=== PATIENT | female | born 1960 | race American Indian/Alaskan Native ===

== ENCOUNTER 2018-07-26 09:08 | Emergency (ER) | payer MEDICAID, MEDICARE ==
[2018-07-26] MEDS ORDERED: ASPIRIN PO ONE (09:18)
[2018-07-26 09:52] LABS: Basophils % (Auto) 0.9 % (0.0-1.8); Eosinophils # (Auto) 0.2 K/mm3 (0.0-0.4); Eosinophils % (Auto) 6.1 % (0.0-4.3); Hematocrit 38.5 % (30.3-42.9); Lymphocytes # (Auto) 1.3 K/mm3 (1.2-5.4); Mean Corpuscular HGB Conc 34 % (30-34); Mean Corpuscular Hemoglobin 30 pg (28-32); Mean Corpuscular Volume 88 fl (79-97); Monocytes # (Auto) 0.5 K/mm3 (0.0-0.8); Monocytes % (Auto) 12.9 % (0.0-7.3); Platelet Count 188 K/mm3 (140-440); Red Blood Count 4.37 M/mm3 (3.65-5.03); Red Cell Distribution Width 14.4 % (13.2-15.2)
[2018-07-26] MEDS ORDERED: CATAPRES PO ONE (10:13)
--- NOTE | 2018-07-26 10:17 | Emergency Department Report ---
- General Chief Complaint: Upper Respiratory Infection Stated Complaint: DRY COUGH Source: patient Mode of arrival: Ambulatory Limitations: No Limitations - History of Present Illness Initial Comments: Patient is a 57-year-old black female past medical history hypertension who is complaining of a dry cough for last 4-5 days. Patient states that her granddaughter was sick with the same condition. Patient states that she has difficulty sleeping secondary to continuous coughing. Patient states this just mild chest discomfort with cough. Patient is also complaining of associated scratchy sore throat as well as sinus congestion and tenderness. Patient denies any fever or neck stiffness at this time. Patient also denies any nausea vomiting and diarrhea. Patient lastly ran out of her blood pressure medicines approximately week ago and does not have any refills. Patient denies any exertional chest pain decreased urination or neurological deficits. - Related Data Previous Rx's Medication Instructions Recorded Last Taken Type Acyclovir [Zovirax Tab] 800 mg PO 5XD #50 tab 01/11/15 Unknown Rx Loratadine [Claritin] 10 mg PO DAILY #30 tablet 01/11/15 Unknown Rx predniSONE [Deltasone] 50 mg PO QDAY #5 tab 01/11/15 Unknown Rx traMADol [Ultram] 50 mg PO Q6HR PRN #30 tablet 01/11/15 Unknown Rx ALBUTEROL Inhaler (OR & NICU) 2 puff IH QID PRN #1 inhalation 07/26/18 Unknown Rx [ProAir HFA Inhaler] Amoxicillin/Potassium Clav 1 each PO BID #14 tablet 07/26/18 Unknown Rx [Augmentin 875-125 Tablet] Benzonatate [Tessalon Perles] 100 mg PO Q8HR #10 capsule 07/26/18 Unknown Rx Losartan/Hydrochlorothiazide 1 each PO DAILY #30 tablet 07/26/18 Unknown Rx [Losartan-Hctz 100-25 mg Tab] predniSONE [Deltasone] 20 mg PO QDAY #5 tab 07/26/18 Unknown Rx Allergies Allergy/AdvReac Type Severity Reaction Status Date / Time No Known Allergies Allergy Verified 07/26/18 09:15 ED Review of Systems ROS: Stated complaint: DRY COUGH Other details as noted in HPI Comment: All other systems reviewed and negative ED Past Medical Hx - Past Medical History Hx Hypertension: Yes - Social History Smoking Status: Never Smoker Substance Use Type: None - Medications Home Medications: Home Medications Medication Instructions Recorded Confirmed Last Taken Type Acyclovir [Zovirax Tab] 800 mg PO 5XD #50 tab 01/11/15 Unknown Rx Loratadine [Claritin] 10 mg PO DAILY #30 tablet 01/11/15 Unknown Rx predniSONE [Deltasone] 50 mg PO QDAY #5 tab 01/11/15 Unknown Rx traMADol [Ultram] 50 mg PO Q6HR PRN #30 tablet 01/11/15 Unknown Rx ALBUTEROL Inhaler (OR & NICU) 2 puff IH QID PRN #1 inhalation 07/26/18 Unknown Rx [ProAir HFA Inhaler] Amoxicillin/Potassium Clav 1 each PO BID #14 tablet 07/26/18 Unknown Rx [Augmentin 875-125 Tablet] Benzonatate [Tessalon Perles] 100 mg PO Q8HR #10 capsule 07/26/18 Unknown Rx Losartan/Hydrochlorothiazide 1 each PO DAILY #30 tablet 07/26/18 Unknown Rx [Losartan-Hctz 100-25 mg Tab] predniSONE [Deltasone] 20 mg PO QDAY #5 tab 07/26/18 Unknown Rx ED Physical Exam - General Limitations: No Limitations General appearance: alert, in no apparent distress - Head Head exam: Present: atraumatic, normocephalic - Eye Eye exam: Present: normal appearance - ENT ENT exam: Present: mucous membranes moist - Neck Neck exam: Present: normal inspection - Respiratory Respiratory exam: Present: normal lung sounds bilaterally. Absent: respiratory distress, wheezes, rales, rhonchi, stridor, chest wall tenderness, accessory muscle use, decreased breath sounds - Cardiovascular Cardiovascular Exam: Present: regular rate, normal rhythm. Absent: systolic murmur, diastolic murmur, rubs, gallop - GI/Abdominal GI/Abdominal exam: Present: soft, normal bowel sounds. Absent: distended, tenderness, guarding, rebound - Extremities Exam Extremities exam: Present: normal inspection - Back Exam Back exam: Present: normal inspection - Neurological Exam Neurological exam: Present: alert, oriented X3 - Psychiatric Psychiatric exam: Present: normal affect, normal mood - Skin Skin exam: Present: warm, dry, intact, normal color. Absent: rash ED Course Vital Signs 07/26/18 09:15 Temperature 98.2 F Pulse Rate 63 Respiratory 18 Rate Blood Pressure 203/115 O2 Sat by Pulse 97 Oximetry ED Medical Decision Making - Lab Data Result diagrams: 07/26/18 09:29 - EKG Data -: EKG Interpreted by Me EKG shows normal: sinus rhythm, axis, intervals, QRS complexes, ST-T waves Rate: normal - EKG Data Interpretation: LV[facility] - Medical Decision Making The patient's lungs are clear to auscultation and the patient is in no acute distress and is not ill-appearing. Patient because of the sinus discomfort and cough will be started on Augmentin. Patient will also be given of a course of steroids. Patient will have her losartan refilled as well.` Critical care attestation.: If time is entered above; I have spent that time in minutes in the direct care of this critically ill patient, excluding procedure time. ED Disposition Clinical Impression: Hypertensive urgency Upper respiratory infection Qualifiers: URI type: unspecified URI Qualified Code(s): J06.9 - Acute upper respiratory infection, unspecified Disposition: DC- TO HOME OR SELFCARE Is pt being admited?: No Does the pt Need Aspirin: No Condition: Stable Instructions: Hypertension (ED), Upper Respiratory Infection (ED) Prescriptions: ALBUTEROL Inhaler (OR & NICU) [ProAir HFA Inhaler] 2 puff IH QID PRN #1 inhalation PRN Reason: Shortness Of Breath Amoxicillin/Potassium Clav [Augmentin 875-125 Tablet] 1 each PO BID #14 tablet Benzonatate [Tessalon Perles] 100 mg PO Q8HR #10 capsule Losartan/Hydrochlorothiazide [Losartan-Hctz 100-25 mg Tab] 1 each PO DAILY #30 tablet predniSONE [Deltasone] 20 mg PO QDAY #5 tab Referrals: PRIMARY CARE, [Primary Care Provider] - 3-5 Days Time of Disposition: 10:17
[2018-07-26 10:27] LABS: BUN/Creatinine Ratio 21; Blood Urea Nitrogen 15 mg/dL (7-17); Calcium 9.4 mg/dL (8.4-10.2); Hemolysis Index 7
[2018-07-26 11:21] VITALS: BP 210/119
[2018-07-26] MEDS ORDERED: CATAPRES ONE (11:28)
== END 2018-07-26 11:29 | disposition home or self-care (01) ==
LOC: ED 09:08
DX: I16.0 Hypertensive urgency (principal); J06.9 Acute upper respiratory infection, unspecified; I10 Essential (primary) hypertension
CPT/HCPCS: 36415; 80048; 84484; 85025; 93005; 93010; 99283

== ENCOUNTER 2018-11-15 15:32 | Emergency (ER) | payer MEDICARE ==
[2018-11-15] MEDS ORDERED: IBUPROFEN PO ONE (19:40)
[2018-11-15] MEDS ORDERED: IBUPROFEN ONE (19:41)
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
[2018-11-15 20:31] VITALS: BP 170/100
== END 2018-11-15 20:30 | disposition home or self-care (01) ==
LOC: ED 15:32
DX: S50.01XA Contusion of right elbow, initial encounter (principal); M62.830 Muscle spasm of back; I10 Essential (primary) hypertension; M54.2 Cervicalgia; M25.561 Pain in right knee; M25.562 Pain in left knee; X58.XXXA Exposure to other specified factors, initial encounter; Y93.89 Activity, other specified; Y92.89 Other specified places as the place of occurrence of the external cause; Y99.8 Other external cause status
CPT/HCPCS: 99282

== ENCOUNTER 2019-04-01 12:44 | Emergency (ER) | payer MEDICARE ==
[2019-04-01 13:37] VITALS: BP 159/90
--- NOTE | 2019-04-01 13:37 | Emergency Department Report ---
Blank Doc - Documentation Documentation: pt presents with a cough that began a week ago +sputum production wheezing +sob +congestion no fever PMHx HTN non smoker occ drinker no drug use
--- NOTE | 2019-04-01 14:46 | XRay Report ---
PROCEDURE: XR CHEST ROUTINE 2V TECHNIQUE: Chest, 2 views HISTORY: cough COMPARISON: None FINDINGS: The heart size is normal. There is no pulmonary vascular congestion seen. Mediastinal contours are normal. Lungs are clear. There is no pleural effusion seen. There is no pneumothorax seen. IMPRESSION: No acute abnormality identified. This document is electronically signed by Luz Marina Javier MD., Apr 01 2019 02:44:33 PM ET
[2019-04-01] MEDS ORDERED: DECADRON IM ONE (15:06)
[2019-04-01] MEDS ORDERED: DUONEB *Not for PRN Use IH ONE (15:06)
--- NOTE | 2019-04-01 15:12 | Emergency Department Report ---
Upper Respiratory HPI - HPI Chief Complaint: Upper Respiratory Infection Stated Complaint: CHEST/COUGH/SORE THROAT Time Seen by Provider: 04/01/19 13:35 Duration: 1 week URI Symptoms: Rhinorrhea: Yes, Sore Throat: Yes, Ear Pain: No, Cough: Yes, Shortness of Breath: Yes, Sick Contacts: No, Unable to Take Fluids: No, Urine Output Abnormal: No, Listless Behavior: No Other History: This is a 58-year-old female nontoxic, well nourished in appearance, no acute signs of distress presents to the ED with c/o of productive cough, wheezing, SOB, rhinorrhea, nasal congestion x1 week. Patient describes productive cough as yellow mucus production. Patient denies any sick contact. Patient denies any recent travels, long car, recent hospital stays. Patient denies any calf pain or calf tenderness. Patient denies any chest pain, fever, chills, nausea, vomiting, hemoptysis, numbness, tingling, headache or stiff neck. Patient denies any allergies or significant past medical history. - Home Meds and Allergies Home Medications: Previous Rx's Medication Instructions Recorded Last Taken Type Acyclovir [Zovirax Tab] 800 mg PO 5XD #50 tab 01/11/15 Unknown Rx Loratadine [Claritin] 10 mg PO DAILY #30 tablet 01/11/15 Unknown Rx predniSONE [Deltasone] 50 mg PO QDAY #5 tab 01/11/15 Unknown Rx traMADol [Ultram] 50 mg PO Q6HR PRN #30 tablet 01/11/15 Unknown Rx ALBUTEROL Inhaler (OR & NICU) 2 puff IH QID PRN #1 inhalation 07/26/18 Unknown Rx [ProAir HFA Inhaler] Amoxicillin/Potassium Clav 1 each PO BID #14 tablet 07/26/18 Unknown Rx [Augmentin 875-125 Tablet] Benzonatate [Tessalon Perles] 100 mg PO Q8HR #10 capsule 07/26/18 Unknown Rx Losartan/Hydrochlorothiazide 1 each PO DAILY #30 tablet 07/26/18 Unknown Rx [Losartan-Hctz 100-25 mg Tab] predniSONE [Deltasone] 20 mg PO QDAY #5 tab 07/26/18 Unknown Rx Ketorolac [Toradol] 10 mg PO Q6H PRN #15 tablet 11/15/18 Unknown Rx Methocarbamol [Robaxin-750] 750 mg PO Q8H PRN #20 tablet 11/15/18 Unknown Rx traMADol [Ultram] 50 mg PO Q6HR PRN #20 tablet 11/15/18 Unknown Rx Azithromycin [Zithromax Z-RADHA] 250 mg PO DAILY #6 tablet 04/01/19 Unknown Rx Benzonatate [Tessalon Perles] 100 mg PO Q8HR PRN #20 capsule 04/01/19 Unknown Rx Ibuprofen [Motrin] 600 mg PO Q8H PRN #20 tablet 04/01/19 Unknown Rx Prednisone [predniSONE 10 mg 10 mg PO .TAPER #1 tab.ds.pk 04/01/19 Unknown Rx (6-Day Pack, 21 Tabs)] Allergies/Adverse Reactions: Allergies Allergy/AdvReac Type Severity Reaction Status Date / Time No Known Allergies Allergy Verified 04/01/19 12:46 ED Review of Systems ROS: Stated complaint: CHEST/COUGH/SORE THROAT Other details as noted in HPI Constitutional: denies: chills, fever Eyes: denies: eye pain, eye discharge, vision change ENT: congestion. denies: ear pain, throat pain Respiratory: cough, shortness of breath, wheezing Cardiovascular: denies: chest pain, palpitations Endocrine: no symptoms reported Gastrointestinal: denies: abdominal pain, nausea, diarrhea Genitourinary: denies: urgency, dysuria, discharge Musculoskeletal: denies: back pain, joint swelling, arthralgia Skin: denies: rash, lesions Neurological: denies: headache, weakness, paresthesias Psychiatric: denies: anxiety, depression Hematological/Lymphatic: denies: easy bleeding, easy bruising ED Past Medical Hx - Past Medical History Hx Hypertension: Yes - Surgical History Additional Surgical History: C section - Social History Smoking Status: Never Smoker Substance Use Type: None - Medications Home Medications: Home Medications Medication Instructions Recorded Confirmed Last Taken Type Acyclovir [Zovirax Tab] 800 mg PO 5XD #50 tab 01/11/15 Unknown Rx Loratadine [Claritin] 10 mg PO DAILY #30 tablet 01/11/15 Unknown Rx predniSONE [Deltasone] 50 mg PO QDAY #5 tab 01/11/15 Unknown Rx traMADol [Ultram] 50 mg PO Q6HR PRN #30 tablet 01/11/15 Unknown Rx ALBUTEROL Inhaler (OR & NICU) 2 puff IH QID PRN #1 inhalation 07/26/18 Unknown Rx [ProAir HFA Inhaler] Amoxicillin/Potassium Clav 1 each PO BID #14 tablet 07/26/18 Unknown Rx [Augmentin 875-125 Tablet] Benzonatate [Tessalon Perles] 100 mg PO Q8HR #10 capsule 07/26/18 Unknown Rx Losartan/Hydrochlorothiazide 1 each PO DAILY #30 tablet 07/26/18 Unknown Rx [Losartan-Hctz 100-25 mg Tab] predniSONE [Deltasone] 20 mg PO QDAY #5 tab 07/26/18 Unknown Rx Ketorolac [Toradol] 10 mg PO Q6H PRN #15 tablet 11/15/18 Unknown Rx Methocarbamol [Robaxin-750] 750 mg PO Q8H PRN #20 tablet 11/15/18 Unknown Rx traMADol [Ultram] 50 mg PO Q6HR PRN #20 tablet 11/15/18 Unknown Rx Azithromycin [Zithromax Z-RADHA] 250 mg PO DAILY #6 tablet 04/01/19 Unknown Rx Benzonatate [Tessalon Perles] 100 mg PO Q8HR PRN #20 capsule 04/01/19 Unknown Rx Ibuprofen [Motrin] 600 mg PO Q8H PRN #20 tablet 04/01/19 Unknown Rx Prednisone [predniSONE 10 mg 10 mg PO .TAPER #1 tab.ds.pk 04/01/19 Unknown Rx (6-Day Pack, 21 Tabs)] ED Bronchiolitis Physical Exam - Exam General: Vital signs noted. No distress. Alert and acting appropriately. HEENT: Yes Pharyngeal Erythema, No Conjuctival Injection, No Dry Mucous Membranes, No Rhinorrhea Ear: Neither TM Bulge, Neither TM Erythema, Neither EAC Discharge Neck: No Adenopathy, No Rigidity Lungs: Yes Clear Lung Sounds, Yes Good Air Exchange, Yes Wheezes (bilateral upper and lower lobes), Yes Cough, No Stridor, No Nasal Flaring, No Retractions, No Use of Accessory Muscles Heart: Yes Regular, No Murmur Abdomen: Yes Normal Bowel Sounds, No Tenderness, No Peritoneal Signs Skin: No Rash, No Eczema Neurologic: Alert and oriented, no deficits. Musculoskeletal: Unremarkable. ED Bronchiolitis Tests - Testing Testing: CXR: Normal/Negative ED Physical Exam - General Limitations: No Limitations ED Course Vital Signs 04/01/19 13:34 Temperature 97.5 F L Pulse Rate 77 Respiratory 18 Rate Blood Pressure 159/90 [Right] O2 Sat by Pulse 98 Oximetry - Reevaluation(s) Reevaluation #1: 04/01/19 15:09 Patient is speaking in full sentences with no signs of distress noted. ED Medical Decision Making - Medical Decision Making This is a 58-year-old female that presents with bronchitis. Patient is stable and was examined by me. Chest x-ray has been obtained and dictated by radiologist with normal exam. Patient is notified of x-ray results with no questions noted. Due to patient having symptoms of upper respiratory infection and worsening I will treat patient empirically with zpak. Patient was instructed to increase hydration, rest and take Motrin for fever episodes. Patient received DuoNeb and Decadron and wheezing has subsided prior to discharge. She stated that she feels much better and shortness of breath has also subsided. Vitals stable. Patient is nonfebrile and normal heart rate. Patient was instructed Follow-up with a primary care doctor in 3-5 days or if symptoms worsen and continue return to emergency room as soon as possible. At time time of discharge, the patient does not seem toxic or ill in appearance. No acute signs of distress noted. Patient agrees to discharge treatment plan of care. No further questions noted by the patient. Critical care attestation.: If time is entered above; I have spent that time in minutes in the direct care of this critically ill patient, excluding procedure time. ED Disposition Clinical Impression: Bronchitis Pharyngitis Qualifiers: Pharyngitis/tonsillitis etiology: unspecified etiology Qualified Code(s): J02.9 - Acute pharyngitis, unspecified Disposition: DC-01 TO HOME OR SELFCARE Is pt being admited?: No Does the pt Need Aspirin: No Condition: Stable Instructions: Acute Bronchitis (ED) Additional Instructions: Follow-up with a primary care doctor in 3-5 days or if symptoms worsen and continue return to emergency room as soon as possible. Prescriptions: Ibuprofen [Motrin] 600 mg PO Q8H PRN #20 tablet PRN Reason: Pain Prednisone [predniSONE 10 mg (6-Day Pack, 21 Tabs)] 10 mg PO .TAPER #1 tab.ds.pk Benzonatate [Tessalon Perles] 100 mg PO Q8HR PRN #20 capsule PRN Reason: Cough Azithromycin [Zithromax Z-ARDHA] 250 mg PO DAILY #6 tablet Referrals: RUSS OSCAR MD [Primary Care Provider] - 3-5 Days PRIMARY CAREMD [Referring] - 3-5 Days EUNICE LOMAS MD [Staff Physician] - 3-5 Days [facility] [Outside] - 3-5 Days [facility] [Outside] - 3-5 Days Forms: Work/School Release Form(ED)
== END 2019-04-01 16:22 | disposition home or self-care (01) ==
LOC: ED 12:44
DX: J40 Bronchitis, not specified as acute or chronic (principal); J02.9 Acute pharyngitis, unspecified; I10 Essential (primary) hypertension
CPT/HCPCS: 71046; 94640; 96372; 99283; J1100